=== PATIENT | male | born 1995 | race Caucasian/White ===

== ENCOUNTER 2025-08-26 00:25 | Emergency (ER) | payer SELFPAY ==
[2025-08-26 00:29] VITALS: BP 156/85; PULSE 65; TEMP 36.7; O2SAT 99; BMI 20.4
--- NOTE | 2025-08-26 00:34 | XR_ITS ---
[facility] [place] [id number] Patient Name: PARAS ROBERTS MRN: [id number] date: 1995 Sex: M Assigned Patient Location: ER Current Patient Location: ED.MAIN Accession/Order Number: [id number] Exam Date: 08/26/2025 00:42 Report Date: 08/26/2025 09:43 At the request of: KB FREDERICK DO Procedure: XR hand RT 2V RIGHT HAND - 2 views CLINICAL DATA: Right hand pain at the fifth finger after punching a wall. COMPARISON: None AP, lateral and oblique views were obtained. A transverse fracture is present at the mid to distal shaft of the fifth metacarpal, with subtle apex dorsal angulation. There is no additional fracture or dislocation. Dorsal soft tissue swelling is present. XR/XR hand RT 2V IMPRESSION: FIFTH METACARPAL FRACTURE. Impression dictated by: Avani Pradhan M.D. 08/26/2025 9:43 AM Dictation Location: [place] [address] Electronically authenticated by: [id number] Y Date: 08/26/2025 09:43
--- OUTSIDE RECORDS SUMMARY | 2025-08-26 00:56 | XMS_ITS | Clinical Summary ---
Author Organization [facility] Address [address] [place] [address] Care Team Providers Care Printing Plate Setter Name Role Phone Katherine Kirkpatrick MD Primary Care Provider [phone] Social History Tobacco UseTypesPacks/DayYears UsedDateSmoking Tobacco: Never AssessedSex and Gender InformationValueDate RecordedSex Assigned at BirthNot on fileLegal Sex Male11/24/2022 6:35 PM EDTGender IdentityNot on fileSexual OrientationNot on file Plan of Treatment Not on file Care Teams Team MemberRelationshipSpecialtyStart DateEnd Date Katherine Kirkpatrick MD [address] [place] [address] PCP - GeneralFamily Medicine01/18/23
--- OUTSIDE RECORDS SUMMARY | 2025-08-26 00:56 | XMS_ITS | Clinical Summary ---
Author Organization [facility] tem Address [id number] [address] [place] [address] Care Team Providers Care Hand Cultivator Name Role Phone Katherine Kirkpatrick MD Primary Care Provider [phone] Allergies No known active allergies Medications MedicationSigDispense QuantityRefillsLast FilledStart DateEnd DateStatus ondansetron ODT (ZOFRAN ODT) 4 mg disintegrating tablet Dissolve 1 tablet (4 mg total) on tongue every 8 (eight) hours as needed for nausea for up to 10 doses. 10 tablet 03/14/2022ctive diphenhydrAMINE 12.5 mg/5 mL elixir 50 mg, alum-mag hydroxide-simeth 400-400-40 mg/5 mL suspension 20 mL, lidocaine 2 % solution 20 mL Swish and spit 5 mL every 4 (four) hours as needed for stomatitis. 150 mL 03/15/2022ctive Family History Medical HistoryRelationNameCommentsNo Known ProblemsFatherNo Known Problems MotherRelationNameStatusCommentsFatherMother Social History Tobacco UseTypesPacks/DayYears UsedDateSmoking Tobacco: Every DayCigarettes Smokeless Tobacco: NeverAlcohol UseStandard Drinks/VeaySjhtzjoeZma32 (1 standard drink = 0.6 oz pure alcohol)ChildcareAnswerDate RecordedChildcareUnknown 02/19/2019EmploymentAnswerDate WgotnbcmMuigkbbfmcHrlnruw86/10/2019Hunger ScreeningAnswerDate RecordedWithin the past 12 months we worried whether our food would run out before we got money to buy more.Never True04/05/2024Within the past 12 months the food we bought just didn't last and we didn't have money to get more.Never True04/05/2024urpose - LifeAnswerDate RecordedPurpose and direction in vrwfEvrodcx02/10/2021ex and Gender InformationValueDate Recorded Sex Assigned at BirthNot on fileLegal YbkPhnc8204/15/2015 12:31 PM EDTGender IdentityNot on fileSexual OrientationNot on file Last Filed Vital Signs Vital SignReadingTime TakenCommentsBlood Wowqfxsj408/8604/05/2024 11:45 AM EDT Tnsss827904/05/2024 11:45 AM EHGJhufvslurwf61.7 ??C (98.1 ??F)04/05/2024 9:33 AM EDTRespiratory Qfhh204704/05/2024 11:45 AM EDTOxygen Uwftppdrhj69%04/05/2024 11:45 AM EDTInhaled Oxygen Concentration--Qzlheu03.2 kg (135 lb)04/05/2024 9:33 AM EDT Depceh166.2 cm (5' 7 )04/05/2024 9:33 AM EDTBody Mass Index21.1407 9:33 AM EDT Plan of Treatment Health MaintenanceDue DateLast DoneCommentsDepression Mzqbjqynm20/19/2010 DTaP,Tdap and Td Vaccines (1 - Tdap)2016Adult BMI Vaxtshtos75/25/2025 04/05/2024Tobacco Ijeemzhhv12/25/37035604/05/2024Influenza Othgfwx6605/13/2025 Medical Devices Not on file Insurance Care Teams Team MemberRelationshipSpecialtyStart DateEnd Date Katherine Kirkpatrick MD [address] [place] [address] PCP - GeneralFamily Medicine01/25/17
--- OUTSIDE RECORDS SUMMARY | 2025-08-26 00:56 | XMS_ITS | Clinical Summary ---
Author Organization [facility] Address [address] [place] [address], [address] [place] [address] Care Team Providers Care Bottle Sorter Name Role Phone Katherine Alexander MD Primary Care Pr ovider Allergies No known active allergies Medications No known medications Social History Tobacco UseTypesPacks/DayYears UsedDateSmoking Tobacco: Passive Smoke Exposure - Never SmokerAlcohol UseStandard Drinks/WeekCommentsNot Asked0 (1 standard drink = 0.6 oz pure alcohol)Sex and Gender InformationValueDate RecordedSex Assigned at BirthNot on fileLegal CmqYpev0310/24/2012 3:38 AM ESTGender IdentityNot on file Sexual OrientationNot on file Last Filed Vital Signs Vital SignReadingTime TakenCommentsBlood Oooirwee805/5904 2:45 PM EDT Xwovk2067 2:00 PM AZTFghrpsyfsav87 ??C (98.6 ??F)01/08/2014 2:45 PM EDT Respiratory Pedd2078 2:45 PM EDTOxygen Mnndofzgsh62%01/08/2014 2:45 PM EDTInhaled Oxygen Concentration--Mmocjk31.9 kg (121 lb 0.5 oz)01/14/2014 2:56 PM FUTEgmmei563 cm (5' 6.93 )01/14/2014 2:56 PM EDTBody Mass Lkexr4308/05/2014 2:56 PM EDT Plan of Treatment Not on file Care Teams Team MemberRelationshipSpecialtyStart DateEnd Date Katherine Alexander MD [facility]03/07/13
[2025-08-26 01:19] VITALS: BP 138/86; PULSE 72; O2SAT 98
--- NOTE | 2025-08-26 01:19 | ED_ITS ---
HPI HPI - General Adult General Chief complaint: Extremity Injury, Upper Stated complaint: UPPER HAND Time Seen by Provider: 08/26/25 00:33 Source: patient Mode of arrival: ambulance Limitations: no limitations History of Present Illness HPI narrative: Patient is a 29-year-old male presenting to the emergency department for evaluation of a right hand injury. Patient punched a wall earlier tonight and immediately felt pain in his right pinky finger. Other than pain in the right hand, he denies any other injuries. He denies any numbness/tingling/weakness in the extremity. He is concerned it may be broken. Related Data Home Medications ?Medication ?Instructions ?Recorded ?Confirmed No Known Home Medications 08/26/2508/12 Allergies Allergy/AdvReac Type Severity Reaction Status Date / Time No Known Drug Allergies Allergy Verified 08/26/25 00:28 Opioid HPI Opioid Management Most Recent Opioid Data: Last Pain Scale 4 Today, 00:36 Review of Systems ROS Status of ROS 10 or more systems reviewed and unremark able except as noted in history and below Exam Narrative Exam Narrative: CONSTITUTIONAL: Well-appearing, answering questions and following commands appropriately SKIN: Was warm and dry. EYES: Sclerae white. EARS, NOSE, THROAT: Moist oral mucosa. RESPIRATORY: Clear to auscultation bilaterally, no wheezes, crackles, or stridor, no use of accessory muscles CARDIOVASCULAR: Normal rate and regular rhythm. There is no S3, S4, murmur, rub. GASTROINTESTINAL: Abdomen is nondistended. MUSCULOSKELETAL: There is significant soft tissue swelling and tenderness to palpation over the right fifth metacarpal shaft. He has full range of motion in the left hand and throughout all of the fingers. No lacerations. NEUROLOGIC: Patient is awake and alert. Sensation intact to light touch throughout the ulnar/median/radial distribution of the right hand. Good certified orthoptist strength. Limited strength in the left pinky flexion/extension/abduction/ad duction secondary to pain. Constitutional Vital Signs, click to edit/add: Last Vital Signs Temp 98.1 F 08/26/25 00:29 Pulse 65 08/26/25 00:29 Resp 16 08/26/25 00:29 BP 156/85 H 08/26/25 00:29 Pulse Ox 99 08/26/25 00:29 Course Vital Signs Vital signs: Vital Signs Temperature 98.1 F 08/26/25 00:29 Pulse Rate 65 08/26/25 00:29 Respiratory Rate 16 08/26/25 00:29 Blood Pressure 156/85 H 08/26/25 00:29 Pulse Oximetry 99 08/26/25 00:29 Temperature 98.1 F 08/26/25 00:29 Pulse Rate 65 08/26/25 00:29 Respiratory Rate 16 08/26/25 00:29 Blood Pressure 156/85 H 08/26/25 00:29 Pulse Oximetry 99 08/26/25 00:29 Medical Decision Making MDM Narrative Medical decision making narrative: Patient is a 29-year-old male presenting to the emergency department the left fifth digit injury after punching a wall. His vital signs are within normal limits. The extremity is neurovascular intact. There is obvious soft tissue swelling and tenderness to palpation throughout the right metacarpal shaft. Differential diagnosis includes boxer fracture, finger sprain. X-rays were obtained. X-rays of the right hand independently reviewed and interpreted by myself demonstrated a boxer's fracture/nondisplaced fracture of the midshaft of the fifth metacarpal. Final read pending by radiology. Patient was placed in a boxer fracture splint with immobilization of the 4th and 5th metacarpals. I do believe he stable for discharge. He was given information for the orthopedic surgery clinic and instructed follow-up in 1 week for care. Return precautions were given including any new or concerning s ymptoms. Patient understands and agrees to plan. FINAL IMPRESSION: #Acute sided nondisplaced boxer's fracture DISPOSITION: Discharged home CONDITION: Good Imaging Data Left hand xray: Attestation: I personally reviewed and interpreted this imaging study as follows: Discharge Plan Discharge Chief Complaint: Extremity Injury, Upper Clinical Impression: Boxer's fracture Patient Disposition: Home, Self-Care Time of Disposition Decision: 01:12 Condition: Good Mode of Transportation: Private Vehicle Prescriptions / Home Meds: No Action No Known Home Medications Print Language: Setswana Instructions: Boxer Fracture (ED) Referrals: TANA GUADARRAMA [Physician, Orthopedics] - 1 week Fuentes Turcios DO [Physician, Orthopedics] - 1 week Physician,Non-Staff, MD [Primary Care Provider] - 1 week
== END 2025-08-26 01:21 | disposition home or self-care (01) ==
PROVIDERS: Emergency Provider Student in an Organized Health Care Education/Training Program
DX: S62.306A Unspecified fracture of fifth metacarpal bone, right hand, initial encounter for closed fracture (principal); W22.01XA Walked into wall, initial encounter
CPT/HCPCS: 29125; 73120; 99283